=== PATIENT | male | born 1970 | race Two or more races ===

== ENCOUNTER 2018-04-14 21:56 | Emergency (ER) | payer OTHER ==
[~2018-04-14] VITALS: Ht 177.8 cm; Wt 83.9 kg
[~2018-04-14 21:56] MED LIST: ATENOLOL50 MG
[2018-04-14] MEDS ORDERED: TENORMIN100 M1 (22:26)
== END 2018-04-15 01:05 | disposition home or self-care (01) ==
LOC: ER 21:56
DX: R07.89 Other chest pain (principal); I10 Essential (primary) hypertension

== ENCOUNTER 2020-08-09 12:18 | Outpatient (CLI) | payer OTHER ==
[~2020-08-09 12:18] MED LIST changes: +TENORMIN100 M1
== END 2020-08-09 12:35 | disposition home or self-care (01) ==
LOC: RAD 12:18
PROVIDERS: ATTEND Family Medicine
DX: R07.89 Other chest pain (principal)

== ENCOUNTER 2021-07-16 13:22 | Outpatient (CLI) | payer OTHER | END 2021-07-16 13:29 | disposition home or self-care (01) | LOC: RAD 13:22 | PROVIDERS: ATTEND Orthopaedic Surgery Sports Medicine | DX: M25.511 Pain in right shoulder (principal) ==

== ENCOUNTER 2022-08-27 10:56 | Outpatient (CLI) | payer OTHER | END 2022-08-27 11:12 | disposition home or self-care (01) | LOC: TOM 10:56 | PROVIDERS: ATTEND Family Medicine | DX: R26.9 Unspecified abnormalities of gait and mobility (principal); R51.9 Headache, unspecified ==

== ENCOUNTER 2023-04-07 08:29 | Outpatient (CLI) | payer OTHER | END 2023-04-07 08:40 | disposition home or self-care (01) | LOC: RAD 08:29 | PROVIDERS: ATTEND Internal Medicine | DX: J44.9 Chronic obstructive pulmonary disease, unspecified (principal); R10.10 Upper abdominal pain, unspecified; I25.10 Atherosclerotic heart disease of native coronary artery without angina pectoris; I11.9 Hypertensive heart disease without heart failure; Z88.0 Allergy status to penicillin; Z91.048 Other nonmedicinal substance allergy status ==

== ENCOUNTER 2024-02-12 13:03 | Inpatient (IN) | payer OTHER ==
[~2024-02-12] VITALS: Ht 177.8 cm; Wt 56.7 kg
[~2024-02-12 13:03] MED LIST changes: +TENORMIN50 M1
[2024-02-12] MEDS ORDERED: 0.9 % SODIUM CHLORIDE 1,000 ML IV STA (13:29)
[2024-02-12 14:13] LABS: HEMATOCRIT 29.7 % (39.0-48.0); HEMOGLOBIN 10.4 g/dL (13-16.00); MEAN CELL VOLUME 103.4 fL (80.0-100.00); MEAN CORPUSCULAR HEMOGLOBIN 36.1 pg (27.00-32.0); MEAN CORPUSCULAR HGB CONC 34.9 g/dl (32.0-36.0); PLATELET COUNT 248 K/uL (150-450); RED BLOOD COUNT 2.88 M/uL (4.00-6.00); RED CELL DISTRIBUTION WIDTH 16.1 % (11.5-14.5)
[2024-02-12 14:23] LABS: PH,URINE 6.5 (5.0-8.0); URINE APPEARANCE Clear; URINE BILIRRUBIN Moderate (NEGATIVE); URINE BLOOD Negative; URINE COLOR Dark Yellow; URINE GLUCOSE Negative (NEGATIVE); URINE KETONE Trace (NEGATIVE); URINE LEUKOCYTE Moderate; URINE NITRATE Negative; URINE PROTEIN Negative (NEGATIVE)
[2024-02-12 14:27] LABS: URINE BACTERIA 5500.5 uL (0.0-1933); URINE EPITHELIAL CELLS 21.7 uL (0.0-38.8); URINE RBC 32.2 uL (0.0-20.8); URINE WBC 36.3 uL (0.0-23.2)
[2024-02-12 14:34] LABS: ALBUMIN 2.1 gm/dL (3.4-5.0); BILIRUBIN TOTAL 7.38 mg/dL (0.3-1.2); CALCIUM 8.5 mg/dL (8.5-10.1); CREATININE SERUM 0.49 mg/dL (0.70-1.30); GFR 178.73; GLOBULINA 4.4 G/DL (2.4-3.5); TOTAL PROTEIN 6.5 gm/dL (6.4-8.2)
[2024-02-12 14:36] LABS: POTASSIUM 1.81 mEq/L (3.5-5.1)
[2024-02-12 15:15] LABS: AMYLASE 61 U/L (25-115); LIPASE 90 U/L (13-75)
[2024-02-12 15:17] LABS: URINE UROBILINOGEN >= 8.0 E.U./dl
[2024-02-12 15:18] LABS: URINE CRYSTALS FEW /HPF; URINE MUCUS SCANT
[2024-02-12] MEDS ORDERED: POTASSIUM CHLORIDE/D5-0.9%NACL 1,000 ML IV NR (15:22)
[2024-02-12 16:27] VITALS: BP 93/57; O2SAT 100
[2024-02-12 16:37] VITALS: BP 93/57
[2024-02-12] MEDS ORDERED: PANTOPRAZOLE SODIUM 40 MG/VIAL VIAL IV SCH (16:52)
[2024-02-12] MEDS ORDERED: 0.9 % SODIUM CHLORIDE 1,000 ML IV SCH (17:00)
[2024-02-12] MEDS ORDERED: ACETAMINOPHEN 500 MG GEL..CAP PO PRN (17:15)
[2024-02-12 18:35] LABS: ALBUMIN 2.1 gm/dL (3.4-5.0); BILIRUBIN TOTAL 7.66 mg/dL (0.3-1.2); BILIRUBIN,CONJUGATED 5.81 mg/dL (0.0-0.2); BILIRUBIN,UNCONJUGATED 1.85 mg/dL (0.0-0.6); CALCIUM 8.5 mg/dL (8.5-10.1); CREATININE SERUM 0.58 mg/dL (0.70-1.30); GFR 147.13; MAGNESIUM 1.6 mg/dL (1.8-2.4); PHOSPHOROUS 2.1 mg/dL (2.5-4.9); TOTAL PROTEIN 6.2 gm/dL (6.4-8.2)
[2024-02-12 18:40] LABS: ABG PH 7.586 (7.35-7.45); ABG PO2 63.2 mmHg (80-100); ABG pCO2 43.1 mmHg (35-45); SaO2 95.9 %
[2024-02-12 18:41] LABS: BASE EXCESS 16.3 mmol/l; Tco2 41.3 mmol/l; allen test SATISFACTORY; o2 21 %; puncture site RADIAL LEFT
[2024-02-12 18:43] LABS: POTASSIUM 2.03 mEq/L (3.5-5.1)
[2024-02-12 19:21] VITALS: BP 106/68; O2SAT 94
[2024-02-12 22:39] VITALS: O2SAT 95
[2024-02-13] VITALS (9 sets, daily range): BP systolic 90–136; BP diastolic 50–70; O2SAT 92–96
[2024-02-13 09:20] LABS: BILIRUBIN TOTAL 6.95 mg/dL (0.3-1.2); CREATININE SERUM 0.5 mg/dL (0.70-1.30); GFR 174.61; GLOBULINA 3.7 G/DL (2.4-3.5); TOTAL PROTEIN 5.7 gm/dL (6.4-8.2)
[2024-02-13 09:34] LABS: POTASSIUM 2.06 mEq/L (3.5-5.1)
[2024-02-13] MEDS ORDERED: MAGNESIUM SULFATE IN WATER 50 ML IV NR (10:00)
[2024-02-13] MEDS ORDERED: POTASSIUM CHLORIDE IN WATER 40 MEQ/100 ML PIGGYBAG IV SCH (12:00)
[2024-02-13] MEDS ORDERED: NAPROXEN 500 MG TABLET PO SCH (17:00)
[2024-02-14] VITALS (8 sets, daily range): BP systolic 93–174; BP diastolic 44–106; O2SAT 90–97
[2024-02-14 08:51] LABS: HEMATOCRIT 26.2 % (39.0-48.0); HEMOGLOBIN 9.1 g/dL (13-16.00); MEAN CELL VOLUME 105.7 fL (80.0-100.00); PLATELET COUNT 252 K/uL (150-450); RED BLOOD COUNT 2.47 M/uL (4.00-6.00); RED CELL DISTRIBUTION WIDTH 16.4 % (11.5-14.5)
[2024-02-14] MEDS ORDERED: SPIRONOLACTONE 50 MG TABLET PO SCH (09:00)
[2024-02-14 09:46] LABS: ALBUMIN 2.1 gm/dL (3.4-5.0); BILIRUBIN TOTAL 7.84 mg/dL (0.3-1.2); CALCIUM 8.2 mg/dL (8.5-10.1); CREATININE SERUM 0.46 mg/dL (0.70-1.30); GFR 192.25; GLOBULINA 3.7 G/DL (2.4-3.5); MAGNESIUM 1.8 mg/dL (1.8-2.4); TOTAL PROTEIN 5.8 gm/dL (6.4-8.2)
[2024-02-14 10:09] LABS: POTASSIUM 2.45 mEq/L (3.5-5.1)
[2024-02-14] MEDS ORDERED: POTASSIUM CHLORIDE 10 MEQ CAPSULE PO SCH (12:00)
[2024-02-14 14:24] LABS: URINE APPEARANCE Cloudy; URINE BILIRRUBIN Large (NEGATIVE); URINE BLOOD Moderate; URINE COLOR Dark Yellow; URINE GLUCOSE Negative (NEGATIVE); URINE KETONE Negative (NEGATIVE); URINE LEUKOCYTE Moderate; URINE NITRATE Positive; URINE PROTEIN Negative (NEGATIVE)
[2024-02-14 14:25] LABS: URINE EPITHELIAL CELLS 39.8 uL (0.0-38.8); URINE RBC 194.2 uL (0.0-20.8); URINE WBC 135.2 uL (0.0-23.2)
[2024-02-14 14:57] LABS: URINE BACTERIA > 9821.5 uL (0.0-1933); URINE CAST 0.61 uL (0.0-1.40)
[2024-02-15] VITALS (7 sets, daily range): BP systolic 104–124; BP diastolic 62–74; O2SAT 90–98
[2024-02-15 08:59] LABS: ALBUMIN 2.1 gm/dL (3.4-5.0); BILIRUBIN TOTAL 8.77 mg/dL (0.3-1.2); CALCIUM 8.5 mg/dL (8.5-10.1); CREATININE SERUM 0.57 mg/dL (0.70-1.30); GFR 150.11; GLOBULINA 3.7 G/DL (2.4-3.5); MAGNESIUM 1.6 mg/dL (1.8-2.4); POTASSIUM 3.5 mEq/L (3.5-5.1); TOTAL PROTEIN 5.8 gm/dL (6.4-8.2)
[2024-02-15] MEDS ORDERED: MAGNESIUM SULFATE IN WATER 50 ML IV NR (11:03)
[2024-02-16 13:11] LABS: HEPATITIS A ANTIBODY IGG Negative (Negative); HEPATITIS B CORE IGG Negative (Negative); HEPATITIS B SURFACE ANTIBODY Non Reactive (.); HEPATITIS C VIRUS ANTIBODY Non Reactive (Non Reactive)
== END 2024-02-15 17:48 | disposition home or self-care (01) | DRG 433 ==
LOC: ER 13:03 → MEDJ 16:19
PROVIDERS: Emergency Medicine; General Practice; Internal Medicine Infectious Disease; ADMIT Internal Medicine; ATTEND Internal Medicine
PROC: BW40ZZZ Ultrasonography of Abdomen (ICD-10-PCS; principal; 2024-02-12)
PROC: BW21ZZZ Computerized Tomography (CT Scan) of Abdomen and Pelvis (ICD-10-PCS; 2024-02-12)
PROC: 4A12X4Z Monitoring of Cardiac Electrical Activity, External Approach (ICD-10-PCS; 2024-02-12)
DX: K70.30 Alcoholic cirrhosis of liver without ascites (principal); N39.0 Urinary tract infection, site not specified; K70.10 Alcoholic hepatitis without ascites; I10 Essential (primary) hypertension; G62.1 Alcoholic polyneuropathy

== ENCOUNTER 2024-03-13 21:02 | Inpatient (IN) | payer OTHER ==
[~2024-03-13] VITALS: Ht 167.6 cm; Wt 68.0 kg
[2024-03-13] MEDS ORDERED: LORazepam 2 MG/ML VIAL IV ONE (21:15)
[2024-03-13] MEDS ORDERED: 0.9 % SODIUM CHLORIDE 1,000 ML IV SCH (21:15)
[2024-03-13] MEDS ORDERED: LevETIRAcetam 500 MG/5 ML VIAL IV ONE (21:30)
[2024-03-13] MEDS ORDERED: SODIUM BICARBONATE 1 MEQ/ML DISP.SYRIN 50ML IV ONE (21:30)
[2024-03-13] MEDS ORDERED: LORazepam 2 MG/ML VIAL IV PUSH STA (21:54)
[2024-03-13 22:00] LABS: HEMATOCRIT 28.5 % (39.0-48.0); HEMOGLOBIN 9.9 g/dL (13-16.00); MEAN CELL VOLUME 108.3 fL (80.0-100.00); MEAN CORPUSCULAR HEMOGLOBIN 37.7 pg (27.00-32.0); MEAN CORPUSCULAR HGB CONC 34.8 g/dl (32.0-36.0); PLATELET COUNT 245 K/uL (150-450); RED BLOOD COUNT 2.64 M/uL (4.00-6.00); RED CELL DISTRIBUTION WIDTH 15.4 % (11.5-14.5)
[2024-03-13 22:18] LABS: BILIRUBIN TOTAL 3.39 mg/dL (0.3-1.2); CALCIUM 7.9 mg/dL (8.5-10.1); CREATININE SERUM 0.53 mg/dL (0.70-1.30); GFR 163.26; GLOBULINA 4.5 G/DL (2.4-3.5); TOTAL PROTEIN 6.5 gm/dL (6.4-8.2)
[2024-03-13 22:19] LABS: PH,URINE 5.5 (5.0-8.0); URINE APPEARANCE Clear; URINE BILIRRUBIN Small (NEGATIVE); URINE BLOOD Negative; URINE COLOR Dark Yellow; URINE GLUCOSE Negative (NEGATIVE); URINE KETONE Trace (NEGATIVE); URINE LEUKOCYTE Negative; URINE NITRATE Negative; URINE PROTEIN 30 (NEGATIVE)
[2024-03-13 22:22] LABS: URINE CAST 5.19 uL (0.0-1.40); URINE EPITHELIAL CELLS 11.9 uL (0.0-38.8); URINE RBC 63.6 uL (0.0-20.8); URINE WBC 62.1 uL (0.0-23.2)
[2024-03-13 22:27] LABS: ALT/SGPT 22 U/L (12-78); AST/SGOT 79 U/L (15-37)
[2024-03-13 22:30] LABS: POTASSIUM 2.61 mEq/L (3.5-5.1)
[2024-03-13 22:32] LABS: URINE MUCUS MODERATE
[2024-03-13 23:14] LABS: ABG PH 7.259 (7.35-7.45); ABG PO2 95.3 mmHg (80-100); ABG pCO2 49.3 mmHg (35-45); BASE EXCESS -5.8 mmol/l; BICARBONATE 21.6 mmol/l (23-25)
[2024-03-13 23:15] LABS: Tco2 23.1 mmol/l; allen test SATISFACTORY; o2 21 %; puncture site RADIAL RIGHT
[2024-03-13 23:17] LABS: SaO2 95.7 %
[2024-03-13 23:27] LABS: COCAINE NEGATIVE (NEGATIVE); METHADONE NEGATIVE (NEGATIVE); OPIATES NEGATIVE (NEGATIVE); THC ( Cannabinoids) POSITIVE (NEGATIVE)
[2024-03-14] VITALS (21 sets, daily range): BP systolic 72–140; BP diastolic 42–86; O2SAT 85–100
[2024-03-14] MEDS ORDERED: levoFLOXacin IN DEXTROSE 5 % 150 ML IV SCH ×2 (00:01→21:00)
[2024-03-14] MEDS ORDERED: PANTOPRAZOLE SODIUM 40 MG/VIAL VIAL IV SCH (00:02)
[2024-03-14] MEDS ORDERED: ONDANSETRON HCL 4 MG in 0.9 % SODIUM CHLORIDE 50 ML IV PRN (00:15)
[2024-03-14] MEDS ORDERED: 0.9 % SODIUM CHLORIDE 1,000 ML IV SCH (00:15)
[2024-03-14] MEDS ORDERED: NA PHOS,M-B/NA PHOS,DI-BA 1 BOTTLE ENEMA RECTAL ONE (00:15)
[2024-03-14] MEDS ORDERED: LACTULOSE 10 G/15 ML ML RECTAL ONE (00:15)
[2024-03-14] MEDS ORDERED: LORazepam 2 MG/ML VIAL IV PRN (00:15)
[2024-03-14] MEDS ORDERED: METRONIDAZOLE/SODIUM CHLORIDE 100 ML IV SCH (01:00)
[2024-03-14] MEDS ORDERED: POTASSIUM CHLORIDE IN WATER 100 ML IV SCH (01:00)
[2024-03-14 02:15] LABS: ABG PH 7.277 (7.35-7.45); ABG PO2 73.3 mmHg (80-100); ABG pCO2 68.6 mmHg (35-45); BASE EXCESS 2.3 mmol/l; BICARBONATE 31.3 mmol/l (23-25); SaO2 92.2 %; Tco2 33.4 mmol/l; allen test SATISFACTORY; o2 100 %; puncture site RADIAL LEFT
[2024-03-14] MEDS ORDERED: IPRATROPIUM BROMIDE 0.5 MG/2.5 ML AMPUL.NEB IH SCH (02:30)
[2024-03-14] MEDS ORDERED: LEVALBUTEROL HCL 1.25 MG/3 ML SOLUTION IH SCH (02:30)
[2024-03-14 02:49] LABS: MAGNESIUM 1.5 mg/dL (1.8-2.4); PHOSPHOROUS 4.6 mg/dL (2.5-4.9)
[2024-03-14 03:02] LABS: C-REACTIVE PROTEIN 4.42 MG/DL (0.00-0.29)
[2024-03-14 03:04] LABS: INR 1.48; PARTIAL THROMBOPLASTIN TIME 28.5 SECONDS (22.0-34.0)
[2024-03-14] MEDS ORDERED: LevETIRAcetam 500 MG/5 ML VIAL IV SCH (05:00)
[2024-03-14] MEDS ORDERED: LevETIRAcetam 5 MG/1 ML REDILUIDO IV SCH (09:00)
[2024-03-14] MEDS ORDERED: LACTULOSE 10 G/15 ML ML PO SCH (09:00)
[2024-03-14] MEDS ORDERED: VANCOMYCIN HCL 1,000 MG VIAL IV SCH (13:09)
[2024-03-14] MEDS ORDERED: NOREPINEPHRINE BITARTRATE 8 MG in DEXTROSE 5 % IN WATER 250 ML IV SCH (13:30)
[2024-03-14] MEDS ORDERED: LACTULOSE 20 G/30 ML BLIST.PACK PO SCH (17:10)
[2024-03-14] MEDS ORDERED: 0.9 % SODIUM CHLORIDE 500 ML IV ONE (20:00)
[2024-03-15 04:00] VITALS: BP 88/64; O2SAT 97
[2024-03-15 06:54] LABS: MEAN CELL VOLUME 107.4 fL (80.0-100.00); MEAN CORPUSCULAR HGB CONC 34.8 g/dl (32.0-36.0); PLATELET COUNT 173 K/uL (150-450); RED BLOOD COUNT 2.08 M/uL (4.00-6.00); RED CELL DISTRIBUTION WIDTH 15.1 % (11.5-14.5)
[2024-03-15 07:00] LABS: HEMATOCRIT 22.3 % (39.0-48.0); HEMOGLOBIN 7.7 g/dL (13-16.00)
[2024-03-15 07:11] LABS: ALBUMIN 1.7 gm/dL (3.4-5.0); BILIRUBIN TOTAL 3.47 mg/dL (0.3-1.2); CREATININE SERUM 0.58 mg/dL (0.70-1.30); GFR 147.13; GLOBULINA 3.9 G/DL (2.4-3.5); TOTAL PROTEIN 5.6 gm/dL (6.4-8.2); TSH 2.18 uIU/mL (0.358-3.74)
[2024-03-15 07:23] VITALS: BP 99/65; O2SAT 100
[2024-03-15 07:32] LABS: POTASSIUM 2.93 mEq/L (3.5-5.1)
[2024-03-15 07:43] LABS: MAGNESIUM 1.2 mg/dL (1.8-2.4); PHOSPHOROUS 0.8 mg/dL (2.5-4.9)
[2024-03-15 07:53] LABS: D DIMER 20.21 MG/L; INR 1.98; PARTIAL THROMBOPLASTIN TIME 31.3 SECONDS (22.0-34.0)
[2024-03-15 07:55] LABS: PROTHROMBIN TIME 20.5 SECONDS (9.0-11.5)
[2024-03-15] MEDS ORDERED: POTASSIUM PHOS,M-BASIC-D-BASIC 3 MM/ML VIAL IV NR (08:00)
[2024-03-15] MEDS ORDERED: MAGNESIUM SULFATE IN WATER 2 GM/50 ML PIGGYBAG IV NR (08:39)
[2024-03-15] MEDS ORDERED: PHYTONADIONE 10 MG/ML AMPUL IV NR (10:30)
[2024-03-15] MEDS ORDERED: PHYTONADIONE 10 MG/ML AMPUL IM NR (10:30)
[2024-03-15] MEDS ORDERED: POTASSIUM CHLORIDE IN WATER 40 MEQ/100 ML PIGGYBAG IV SCH (12:00)
[2024-03-15 13:00] VITALS: BP 96/56; O2SAT 32
[2024-03-15 15:16] VITALS: BP 95/68; O2SAT 100
[2024-03-15 21:06] VITALS: BP 107/60; O2SAT 98
[2024-03-15 23:23] VITALS: BP 123/66; O2SAT 93
[2024-03-16 04:00] VITALS: BP 111/78; O2SAT 83
[2024-03-16 07:17] VITALS: BP 167/65; O2SAT 100
[2024-03-16 07:52] LABS: ABG PH 7.351 (7.35-7.45); ABG PO2 72.8 mmHg (80-100); BASE EXCESS -1.5 mmol/l; BICARBONATE 24.3 mmol/l (23-25); SaO2 93.4 %; Tco2 25.7 mmol/l
[2024-03-16 08:33] LABS: allen test SATISFACTORY; o2 100 %; puncture site RADIAL RIGHT
[2024-03-16 09:24] LABS: HEMOGLOBIN 10.8 g/dL (13-16.00); MEAN CELL VOLUME 104.1 fL (80.0-100.00); MEAN CORPUSCULAR HEMOGLOBIN 36.2 pg (27.00-32.0); MEAN CORPUSCULAR HGB CONC 34.8 g/dl (32.0-36.0); PLATELET COUNT 244 K/uL (150-450); RED BLOOD COUNT 2.97 M/uL (4.00-6.00)
[2024-03-16 09:25] LABS: RED CELL DISTRIBUTION WIDTH 21.2 % (11.5-14.5)
[2024-03-16] MEDS ORDERED: METOPROLOL TARTRATE 5MG/5ML AMPUL IV NR (10:10)
[2024-03-16 10:57] LABS: ALBUMIN 1.7 gm/dL (3.4-5.0); BILIRUBIN TOTAL 4.86 mg/dL (0.3-1.2); CALCIUM 8.2 mg/dL (8.5-10.1); CREATININE SERUM 0.72 mg/dL (0.70-1.30); GFR 114.64; GLOBULINA 3.8 G/DL (2.4-3.5); MAGNESIUM 1.7 mg/dL (1.8-2.4); PHOSPHOROUS 3.4 mg/dL (2.5-4.9); POTASSIUM 4.04 mEq/L (3.5-5.1); TOTAL PROTEIN 5.5 gm/dL (6.4-8.2)
[2024-03-16 12:00] VITALS: BP 134/111; O2SAT 83
[2024-03-16] MEDS ORDERED: MORPHINE SULFATE 4 MG/ML VIAL IV PRN (14:00)
[2024-03-16] MEDS ORDERED: MEROPENEM 500 MG/VIAL VIAL IV SCH (14:00)
[2024-03-16] MEDS ORDERED: MORPHINE SULFATE 2 MG/ML CARTRIDGE IV PRN (14:15)
[2024-03-16 16:00] VITALS: O2SAT 83
[2024-03-16] MEDS ORDERED: METOPROLOL TARTRATE 5MG/5ML AMPUL IV SCH ×2 (17:00)
[2024-03-16 20:00] VITALS: O2SAT 80
[2024-03-16 23:01] VITALS: O2SAT 79
[2024-03-17 04:22] VITALS: O2SAT 76
[2024-03-17 06:00] VITALS: BP 76/58; O2SAT 75
[2024-03-17 06:39] LABS: HEMATOCRIT 31.4 % (39.0-48.0); HEMOGLOBIN 10.4 g/dL (13-16.00); MEAN CELL VOLUME 106.2 fL (80.0-100.00); MEAN CORPUSCULAR HEMOGLOBIN 35.3 pg (27.00-32.0); MEAN CORPUSCULAR HGB CONC 33.2 g/dl (32.0-36.0); PLATELET COUNT 285 K/uL (150-450); RED BLOOD COUNT 2.95 M/uL (4.00-6.00); RED CELL DISTRIBUTION WIDTH 21.8 % (11.5-14.5)
[2024-03-17 06:56] LABS: ALBUMIN 1.5 gm/dL (3.4-5.0); BILIRUBIN TOTAL 4.01 mg/dL (0.3-1.2); CALCIUM 8.2 mg/dL (8.5-10.1); CREATININE SERUM 1.11 mg/dL (0.70-1.30); GFR 69.56; GLOBULINA 3.8 G/DL (2.4-3.5); MAGNESIUM 1.8 mg/dL (1.8-2.4); PHOSPHOROUS 4.5 mg/dL (2.5-4.9); POTASSIUM 4.82 mEq/L (3.5-5.1); TOTAL PROTEIN 5.3 gm/dL (6.4-8.2)
[2024-03-17 07:34] VITALS: BP 82/55; O2SAT 61
[2024-03-17 12:00] VITALS: BP 74/52; O2SAT 76
[2024-03-17 17:25] VITALS: O2SAT 47
[2024-03-17 18:18] VITALS: O2SAT 0
== END 2024-03-17 19:04 | disposition expired | DRG 871 ==
LOC: ER 21:02 → ICU-2 03-14 00:02 → ICU 03-14 18:15 → MEDJ 03-17 13:41
PROVIDERS: Emergency Medicine; General Practice; Internal Medicine Infectious Disease; ADMIT Internal Medicine; ATTEND Internal Medicine
PROC: BW28ZZZ Computerized Tomography (CT Scan) of Head (ICD-10-PCS; principal; 2024-03-13)
PROC: BW21ZZZ Computerized Tomography (CT Scan) of Abdomen and Pelvis (ICD-10-PCS; 2024-03-13)
PROC: BW24ZZZ Computerized Tomography (CT Scan) of Chest and Abdomen (ICD-10-PCS; 2024-03-14)
PROC: B24BYZZ Ultrasonography of Heart with Aorta using Other Contrast (ICD-10-PCS; 2024-03-14)
PROC: 30233N1 Transfusion of Nonautologous Red Blood Cells into Peripheral Vein, Percutaneous Approach (ICD-10-PCS; 2024-03-15)
PROC: 4A12X4Z Monitoring of Cardiac Electrical Activity, External Approach (ICD-10-PCS; 2024-03-17)
DX: A41.9 Sepsis, unspecified organism (principal); I21.A1 Myocardial infarction type 2; J69.0 Pneumonitis due to inhalation of food and vomit; J96.90 Respiratory failure, unspecified, unspecified whether with hypoxia or hypercapnia; E87.29 Other acidosis; E72.4 Disorders of ornithine metabolism; D84.9 Immunodeficiency, unspecified; R56.9 Unspecified convulsions; Z66 Do not resuscitate; K70.30 Alcoholic cirrhosis of liver without ascites; K76.82 Hepatic encephalopathy; K52.9 Noninfective gastroenteritis and colitis, unspecified; S09.93XA Unspecified injury of face, initial encounter; I48.91 Unspecified atrial fibrillation; D64.9 Anemia, unspecified